=== PATIENT | male | born 1975 | race Caucasian/White ===

== ENCOUNTER → 2023-09-03 | Outpatient (CLI) | payer BC, SELFPAY ==
--- NOTE | 2023-09-03 | ASPOS_PTH ---
PATIENT: VALERIA MOROCHO LOC: [facility] U#:[id number] AGE/SX: 48/M ROOM: RE09/03/[address]: Dr. Sanjeev Connors MD : 1975 BED: DIS: 09/03/2023 SPEC #: [id number] RECD: 09/03/23 12:45 STATUS: SONYA TOOR #: [id number] DHEERAJ: 09/03/23 00:[address]: Sanjeev Connors DEPT: CYTOLOGY RECD BY: Dusty Barakat ENTERED: 09/03/23 12:46 SP TYPE: ASP HERE OTHR DR: Chelsea Sabillon, LAURA Tissues: Neck, NOS Procedures: Surgery Specimen Level IV Cytology Other Fine Needle Asp on Site HEADER OPERATION: Fine needle aspiration Right neck masses PRE-OP DIAGNOSIS: Right neck mass TISSUE SUBMITTED: A- Right anterior neck mass, B- Right posterior neck mass DIAGNOSIS CYTOLOGY A. Fine needle aspiration, right anterior neck mass (smears and cellblock): Consistent with benign cyst contents. See comment. B. Fine needle aspiration, right posterior neck mass (cytospin and cellblock): Blood. No evidence of malignancy. See comment. AM/mr 09/06/2023 COMMENT A fine needle aspiration was performed, and the specimen is evaluated at the time of FNA by Dr. Chanel. Immediate Evaluation: A. Rare macrophages and blood. No evidence of malignancy. B. Blood. No evidence of malignancy. A. This specimen contains blood, amorphous proteinaceous debris and scattered macrophages. B. This specimen primarily contains blood. Both right anterior and right posterior neck masses were near resolved/markedly smaller post aspiration. Clinical correlation is suggested. Case has been reviewed in consultation with Dr. Edmondson who concurs with the above diagnosis. IDC:[facility] CYTOLOGY STUDY Slides are reviewed. CYTOLOGY GROSS A. Received is 3.5 ml of dark red fluid labeled with the patient's name, and designated Fine needle aspiration right anterior neck mass. 6 imprints and 2 paps are made from the submitted fluid and the rest is added to CytoLyt for cell block preparation. Submitted for cytology study. B. Received is 0.5 ml of reddish lopez fluid labeled with the patient's name, and designated Fine needle aspiration right posterior neck mass. 3 imprints and 3 paps are made from the submitted fluid and the rest is added to CytoLyt for cell block preparation. Submitted for cytology study. CLEMENTE/ 09/03/23 TC:5 CPT:45997x3,65368c3,06340o1,74251u2
== END | disposition home or self-care (01) ==
PROVIDERS: PCP Clinical Nurse Specialist; Referring Provider Otolaryngology Otolaryngology/Facial Plastic Surgery; Visit Provider Otolaryngology Otolaryngology/Facial Plastic Surgery
DX: R22.1 Localized swelling, mass and lump, neck (principal)
CPT/HCPCS: 10021; 88161; 88305